=== PATIENT | female | born 1945 | race Caucasian/White ===

== ENCOUNTER 2020-02-23 14:38 | Outpatient (CLI) | payer MEDICARE, SELFPAY ==
--- NOTE | 2020-02-23 14:50 | XR_ITS ---
WS: [id number] SCREENING DEXA SCAN [employer] CLINICAL INFORMATION: POSTMENOPAUSAL COMPARISON: None. FINDINGS: The L1-L4 bone mineral density measures 1.5. This corresponds to a T score score of 3.3 and Z score o f 4.6. Left forearm bone mineral density 0.84 with a T score of -0.3 and Z score of 1.8 XR/XR DEXA axial skeleton* [id number] IMPRESSION: Normal bone mineralization.
== END 2020-02-23 14:39 | disposition home or self-care (01) ==
PROVIDERS: PCP Physician Assistant Medical; Visit Provider Physician Assistant Medical
DX: Z78.0 Asymptomatic menopausal state (principal)
CPT/HCPCS: 77080